=== PATIENT | female | born 1990 | race Hispanic/Latino ===

== ENCOUNTER 2020-05-01 06:25 | Inpatient (IN) | payer MEDICAID ==
[~2020-05-01] VITALS: Ht 162.6 cm; Wt 96.2 kg
[2020-05-01] MEDS ORDERED: LACTATED RINGERS 1000ML 1,000 ML IV PRN (06:31)
[2020-05-01] MEDS ORDERED: NALOXONE HCL 0.4 MG/1 ML ML IV PRN (06:45)
[2020-05-01] MEDS ORDERED: LACTATED RINGERS 500 ML 500 ML IV PRN (06:45)
[2020-05-01] MEDS ORDERED: LACTATED RINGERS 1000ML 1,000 ML IV SCH (06:45)
[2020-05-01] MEDS ORDERED: ROPIVACAINE 0.2% 100ML VIAL 100 ML EP SCH (06:45)
[2020-05-01] MEDS ORDERED: EPHEDRINE SULFATE 50 MG/ML AMPULE IVP PRN (06:45)
[2020-05-01] MEDS ORDERED: PREN-196 PO (06:51)
[2020-05-01] MEDS ORDERED: MAG HYDROX/AL HYDROX/SIMETH ES 30 ML SUSP UDCUP PO SCH (07:15)
[2020-05-01 07:26] LABS: HEMATOCRIT 36.5 % (36-48); MEAN CORPUSCULAR HEMOGLOBIN 27.9 pg (27.0-33.0); MEAN CORPUSCULAR HGB CONC 32.6 g/dL (32.0-36.0); MEAN CORPUSCULAR VOLUME 85.7 fL (79-99); RED BLOOD CELL COUNT(AUTO) 4.26 MIL/uL (4.00-5.50); RED CELL DISTRIBUTION WIDTH 16.4 % (11.0-15.5); WHITE BLOOD COUNT (AUTO) 12.4 K/uL (4.8-10.8)
[2020-05-01] MEDS ORDERED: OXYTOCIN-LR 20 UNITS/1000 ML 1,000 ML IV ONE (07:38)
[2020-05-01 07:52] LABS: APPEARANCE,URINE Clear (CLEAR); BILIRUBIN,URINE Negative (NEGATIVE); COLOR,URINE Yellow (YELLOW); GLUCOSE, URINE (UA) Negative (NEGATIVE); KETONES,URINE Negative (NEGATIVE); LEUKOCYTE ESTERASE ,URINE Negative (NEGATIVE); NITRATE,URINE Negative (NEGATIVE); OCCULT BLOOD,URINE Negative (NEGATIVE); PH,URINE 7.5 (5.0-8.0); PROTEIN,URINE Negative (NEGATIVE)
[2020-05-01] MEDS ORDERED: MEASLES/MUMPS/RUBELLA VACCINE, LIVE 0.5 ML/VIAL SQ PRN (12:30)
[2020-05-01] MEDS ORDERED: ACETAMINOPHEN-CODEINE 300/30MG TAB PO PRN (12:30)
[2020-05-01] MEDS ORDERED: ACETAMINOPHEN 325 MG TAB PO PRN (12:30)
[2020-05-01] MEDS ORDERED: WITCH HAZEL 1 PAD TP PRN (12:30)
[2020-05-01] MEDS ORDERED: DIPH,PERTUSS(ACELL),TET VAC/PF 0.5 ML VIAL IM PRN (12:30)
[2020-05-01] MEDS ORDERED: BENZOCAINE/LANOLIN/ALOE VERA 60 ML AEROSOL TP PRN (12:30)
[2020-05-01] MEDS ORDERED: LANOLIN 30GM OINTMENT TP PRN (12:30)
[2020-05-01] MEDS ORDERED: OXYTOCIN-LR 20 UNITS/1000 ML 1,000 ML IV SCH (12:30)
[2020-05-01 13:30] VITALS: BP 103/60
--- NOTE | 2020-05-01 13:30 | NUR ---
REPORT RECEIVED FROM NAVNEET PERDOMO RN AND PATIENT CARE TRANSFERED AT THIS TIME. PATIENT ORIENTED TO UNIT AND CALL LIGHT. AFTER ASSESSMENT PATIENT WAS ASSISTED TO BATHROOM AND VOIDED 850CC OF BLOOD TINGED URINE. PIV IS PATENT. PATIENT WAS INSTRUCTED ON USE OF SITZ BATH, DERMAPLAST SPRAY AND USE OF TUCKS FOR PERINEAL DISCOMFORT. LANOLIN WAS ALSO ISSUED AND INSTRUCTED ON USE. VERBALIZED UNDERSTANDING INSTRUCTIONS GIVEN.
[2020-05-01] MEDS: IBUPROFEN 600 MG TABLET PO PRN ×2 (13:52→19:58)
[2020-05-01 16:00] VITALS: BP 106/76
--- NOTE | 2020-05-01 16:05 | NUR ---
VITAL SIGNS HAVE REMAINED STABLE AND PATIENT AND BONDING WELL WITH . DENIES PAIN AT THIS TIME.
--- NOTE | 2020-05-01 17:00 | NUR ---
DISCHARGE INSTRUCTIONS FOR A.M. WERE REVIEWED WITH PATIENT AND WERTE GIVEN TO PATIENT. ALL INFO WERE COVERED AND NEED TO BUY MOTRIN OVER THE COUNTER TO BE USED NEEDED FOR PAIN. DOSAGE AND FREQUENCY WERE DISCUSSED WITH PATIENT AND VERBALIZED UNDERSTANDING.
--- NOTE | 2020-05-01 19:10 | NUR ---
REPORT GIVEN TO Gordon SANTIAGO RN. PATIENT STABLE.
[2020-05-01 19:12] VITALS: BP 113/77
--- NOTE | 2020-05-01 19:30 | NUR ---
safety Patient resting quietly in bed with infant in arms. at bedside. Side rails up, bed down with call abbasi in reach. Patient states feeling cramping and requesting pain medication. Notified of plan of care. Questions answered. Patient verbalizes understanding.
[2020-05-01] MEDS: DOCUSATE SODIUM 100 MG CAP PO SCH (19:58)
--- NOTE | 2020-05-01 20:00 | NUR ---
comfort Motrin 600mg po x1 tab given and colace 100mg PO given. See MAR
--- NOTE | 2020-05-01 20:15 | NUR ---
fluids D'C IV. Pressure applied and bandaid placed
[2020-05-01 23:08] VITALS: BP 128/68
[2020-05-02 03:51] VITALS: BP 114/56
[2020-05-02 07:52] VITALS: BP 104/59
--- NOTE | 2020-05-02 08:15 | NUR ---
ASSESSMENT: RESTING IN BED, EXPLAINED POC AND UNDERSTANDING VERBALIZED. CALL PALOMINO AT HER SIDE.
--- NOTE | 2020-05-02 08:16 | NUR ---
ASSESSMENT: DR JOYA SPOKE WITH PT AND EXPLAINED POC FOR DISCHARGE HOME.
--- NOTE | 2020-05-02 09:00 | NUR ---
SITZ BATH: INSTRUCTED TO TAKE TID AND RETURNED DEMONSTRATION. REINFORCED DISCHARGE INSTRUCTIONS AND UNDERSTANDING VERBALIZED.
[2020-05-02] MEDS: DOCUSATE SODIUM 100 MG CAP PO SCH (09:07)
[2020-05-02] MEDS: IBUPROFEN 600 MG TABLET PO PRN (09:07)
--- NOTE | 2020-05-02 09:30 | NUR ---
HYGEINE: TAKING A SHOWER
[2020-05-02 11:19] VITALS: BP 111/72
--- NOTE | 2020-05-02 13:10 | NUR ---
DISCHARGE: DISCHARGED HOME VIA W/C TO PRIVATE CAR WITH . BABY STAYING DUE TO JAUNDICE. PROVIDED WITH PHONE NUMBER TO CALL NSY AT ANY TIME, AND UNDERSTANDS NO VISITATIONS ALLOWED DUE TO COVID 19.
[2020-05-04 16:09] LABS: HEPATITIS Bs ANTIGEN SCREEN P Negative (Negative)
== END 2020-05-02 13:10 | disposition home or self-care (01) | DRG 560 ==
LOC: LDH 06:25 → WSH 13:09
PROVIDERS: ADMIT Specialist; ATTEND Specialist
PROC: 10E0XZZ Delivery of Products of Conception, External Approach (ICD-10-PCS; principal; 2020-05-01)
PROC: 0KQM0ZZ Repair Perineum Muscle, Open Approach (ICD-10-PCS; 2020-05-01)
PROC: 10907ZC Drainage of Amniotic Fluid, Therapeutic from Products of Conception, Via Natural or Artificial Opening (ICD-10-PCS; 2020-05-01)
PROC: 3E0R3BZ Introduction of Anesthetic Agent into Spinal Canal, Percutaneous Approach (ICD-10-PCS; 2020-05-01)
PROC: 00HU33Z Insertion of Infusion Device into Spinal Canal, Percutaneous Approach (ICD-10-PCS; 2020-05-01)
PROC: 3E0234Z Introduction of Serum, Toxoid and Vaccine into Muscle, Percutaneous Approach (ICD-10-PCS; 2020-05-01)
PROC: 3E0134Z Introduction of Serum, Toxoid and Vaccine into Subcutaneous Tissue, Percutaneous Approach (ICD-10-PCS; 2020-05-01)
DX: O69.81X0 Labor and delivery complicated by cord around neck, without compression, not applicable or unspecified (principal); O70.1 Second degree perineal laceration during delivery; Z37.0 Single live birth; Z23 Encounter for immunization; Z3A.39 39 weeks gestation of pregnancy
CPT/HCPCS: 36415; 81003; 85027; 86592; 86850; 86900; 86901; 87340; 90707; 90715; A4314; A4606; G0378; J2590; J2795; J7120